=== PATIENT | male | born 1950 | race Caucasian/White ===

== ENCOUNTER 2016-11-05 06:15 | Emergency (ER) | payer OTHER ==
[~2016-11-05] VITALS: Ht 180.3 cm; Wt 109.0 kg
[~2016-11-05 06:15] MED LIST: ASCORBIC ACID500 M3 PO; CIPRO500 MG PO; COUMADIN5 MG PO; CRANBERRY TABL1 EACH PO; DIGITEK250 MC2 PO; DIGOXIN; DIGOXIN250 MCG PO; KEFLEX500 MG PO; METOPROLOL; METOPROLOL TAR100 MG PO; PROMETHAZINE-C120 ML PO; TYLENOL EXTRA500 MG PO; VITAMIN E100 UNIT PO; VITAMIN E400 UNIT PO; WARFARIN SODIU2.5 MG PO; WARFARIN SODIUM5 MG PO
[2016-11-05 06:55] LABS: HEMATOCRIT 42.4 % (38.0-50.0); MCH 31.1 PG (29.0-34.0); MCHC 35.6 G/DL (30.0-36.0); MCV 87.4 FL (86-99); MEAN PLAT.VOLUME 9.2 uM^3 (9.0-12.4); PLATELET COUNT 148 K/uL (156-360); RBC DIS.WIDTH-CV 13.1 % (11.8-14.6); RBC DIS.WIDTH-SD 40.8 % (39-53); RED BLOOD COUNT 4.85 M/uL (4.00-5.50); WHITE BLOOD COUNT 7.7 K/uL (4.1-10.2)
[2016-11-05 07:08] LABS: INTER. NORMALIZED RATIO 3.2; PTT 46.2 (25-32)
[2016-11-05 07:21] LABS: ANION GAP 7 MEQ/L (2-14); CHLORIDE 106 MEQ/L (99-109); POTASSIUM 3.9 MEQ/L (3.7-5.4); SAMPLE HEMOLYSIS CHECK 0; SAMPLE ICTERIC CHECK 0; SAMPLE LIPEMIA CHECK 0; SODIUM 139 MEQ/L (136-147)
[2016-11-05 07:26] LABS: GFR ESTIMATE (CALCULATED) > 59 mL/min/; GLUCOSE 102 mg/dL (70-99); UREA NITROGEN (BUN) 17 mg/dL (9-23)
[2016-11-05 08:25] LABS: ADD MIUA? YES; BILIRUBIN NEGATIVE; BLOOD NEGATIVE; COLOR YELLOW ((YELLOW)); GLUCOSE (STRIP) NEGATIVE; KETONES NEGATIVE; LEUKOCYTES SMALL; NITRITE NEGATIVE; PH, URINE 5.5 (5-8); PROTEIN (STRIP) NEGATIVE; SPECIFIC GRAVITY 1.021 (1.000-1.030); UROBILINOGEN 0.2 MG/DL (0.2-1.0)
[2016-11-05 08:55] LABS: BACTERIA NONE SEEN; CASTS NONE SEEN /LPF; CRYSTALS NONE SEEN; EPITHELIAL CELLS RARE; MUCUS NONE SEEN; PATHOLOGICAL CAST NONE SEEN; RED BLOOD CELLS 0-5 /HPF (0-5); SMALL ROUND CELL NONE SEEN; WHITE BLOOD CELLS 0-5 /HPF (0-5); YEAST-LIKE CELL NONE SEEN
[2016-11-05] MEDS ORDERED: TYLENOL EXTRA500 MG PO (09:21)
[2016-11-05] MEDS ORDERED: PERCOCET 5/31 TABLET PO (09:27)
[2016-11-05 10:07] VITALS: BP 129/71
== END 2016-11-05 10:07 | disposition home or self-care (01) ==
LOC: EME 06:15
PROVIDERS: Nurse Practitioner Family
DX: S00.03XA Contusion of scalp, initial encounter (principal); S80.01XA Contusion of right knee, initial encounter; S00.91XA Abrasion of unspecified part of head, initial encounter; W06.XXXA Fall from bed, initial encounter; I10 Essential (primary) hypertension; Z87.440 Personal history of urinary (tract) infections; Z87.891 Personal history of nicotine dependence; Z79.01 Long term (current) use of anticoagulants
CPT/HCPCS: 70450; 71020; 73564; 80048; 81003; 85027; 85610; 85730; 99281; 99284

== ENCOUNTER 2016-11-09 15:12 | Emergency (ER) | payer OTHER ==
[~2016-11-09] VITALS: Ht 180.3 cm; Wt 109.1 kg
[~2016-11-09 15:12] MED LIST changes: +PERCOCET 5/31 TABLET PO
[2016-11-09] MEDS ORDERED: KEFLEX750 MG PO (16:23)
[2016-11-09 16:44] VITALS: BP 137/87
== END 2016-11-09 16:46 | disposition home or self-care (01) ==
LOC: EME 15:12
PROC: 0H9KXZX Drainage of Right Lower Leg Skin, External Approach, Diagnostic (ICD-10-PCS; principal; 2016-11-09)
DX: S80.01XA Contusion of right knee, initial encounter (principal); I10 Essential (primary) hypertension; W06.XXXD Fall from bed, subsequent encounter
CPT/HCPCS: 87070; 87075; 87205; 99281; 99283